=== PATIENT | male | born 2000 | race Caucasian/White ===

== ENCOUNTER 2024-01-10 16:33 | Emergency (ER) | payer OTHER, SELFPAY ==
[2024-01-10 16:43] VITALS: PULSE 73; TEMP 36.8; O2SAT 100; BMI 32.5
--- NOTE | 2024-01-10 16:58 | XR_ITS ---
The [address] [address] Patient Name: SERGE BILL MRN: [id number] date: 2000 Sex: M Assigned Patient Location: ED.MAIN Current Patient Location: ED.MAIN Accession/Order Number: [id number] Exam Date: 01/10/2024 16:53 Report Date: 01/10/2024 17:21 At the request of: RYAN RICO Procedure: XR hand LT min 3V Exam: Radiographs: XR hand LT min 3V Reason for exam: pain Comparison: None XR/XR hand LT min 3V IMPRESSION: Unremarkable left hand radiographs. Electronically authenticated by: HOMERO CONNELLY Date: 01/10/2024 17:21
--- NOTE | 2024-01-10 18:23 | ED.GENADUL1 ---
HPI HPI - General Adult General Chief complaint: Extremity Injury, Lower Stated complaint: Upper INJURY Time Seen by Provider: 01/10/24 17:27 Source: patient Mode of arrival: walk-in History of Present Illness HPI narrative: Patient is a 23-year-old male who presents to the emergency department for the evaluation of an injury to the left hand. He was at work and states he hit his left hand accidentally with a sledgehammer. He is right-hand dominant. He sustained a small abrasion to the dorsum of the hand. Tetanus is up-to-date. No active bleeding at this time. No other associated injuries. Patient denies peripheral paresthesias to the left hand. Related Data Previous Rx's ?Medication ?Instructions ?Recorded hydrocodone 5 mg-acetaminophen 325 1 tab PO Q6H PRN pain 2 days #8 01/10/24 mg tablet tabs ketorolac 10 mg tablet 10 mg PO TID PRN pain #10 tabs 01/10/24 Allergies Allergy/AdvReac Type Severity Reaction Status Date / Time No Known Drug Allergies Allergy Verified 01/10/24 16:43 Opioid HPI Opioid Management Most Recent Opioid Data: Last Pain Scale 4 01/10/24 18:08 Review of Systems ROS Constitutional Denies: fever or chills Ears, nose, mouth, and throat Denies: throat pain or nasal congestion Respiratory Denies: shortness of breath Gastrointestinal Denies: nausea or vomiting Musculoskeletal Reports: extremity pain; Denies: back pain or neck pain Integumentary/Breast Denies: rash Neurological Denies: numbness in extremities or weakness in extremities Hematologic/Lymphatic Denies: easy bruising or easy bleeding PFSH PFSH Social History Little interest or pleasure in doing things: not at all Feeling down, depressed, or hopeless: not at all Exam Narrative Exam Narrative: Gen.: Awake, alert, in no distress Head: Normocephalic, atraumatic ENT: Moist mucous membranes Respiratory: No respiratory distress Extremities: Moves extremities equally, swelling and tenderness noted over the dorsum of the left hand with a small abrasion, no deep laceration or active bleeding noted. Limited flexion extension of the fingers of the left hand. No obvious deformity, 2+ left radial pulse Psych: Normal mood and affect Neuro: No focal neuro deficit Skin: Warm, dry Constitutional Vital Signs, click to edit/add: Last Vital Signs Temp 98.2 F 01/10/24 16:43 Pulse 73 01/10/24 16:43 Resp 18 01/10/24 16:43 Pulse Ox 100 01/10/24 16:43 Course Vital Signs Vital signs: Vital Signs Temperature 98.2 F 01/10/24 16:43 Pulse Rate 73 01/10/24 16:43 Respiratory Rate 18 01/10/24 16:43 Pulse Oximetry 100 01/10/24 16:43 Temperature 98.2 F 01/10/24 16:43 Pulse Rate 73 01/10/24 16:43 Respiratory Rate 18 01/10/24 16:43 Pulse Oximetry 100 01/10/24 16:43 Medical Decision Making MDM Narrative Medical decision making narrative: X-rays of the left hand with no evidence of fracture or dislocation. Band-Aid, Gilberto wrap applied and the patient is neurovascularly intact. Rest, ice, elevate. Patient referred to occupational health for follow-up. Short course of analgesics and NSAIDs given for home. SUPERVISED APC VISIT, PHYSICIAN ATTESTATION: Based on the medical record the care appears appropriate. ? Medical Records Medical records reviewed: Yes I reviewed the patient's medical records Imaging Data XR hand: Attestation: I have reviewed the pertinent imaging results. Radiologist's impression: ITS Impressions Hand X-Ray 01/10/24 16:58 IMPRESSION: Unremarkable left hand radiographs. Electronically authenticated by: HOMERO CONNELLY Date: 01/10/2024 17:21 Discharge Plan Discharge Chief Complaint: Extremity Injury, Lower Clinical Impression: Contusion of left hand, Abrasion Patient Disposition: Home, Self-Care Time of Disposition Decision: 18:21 Condition: Good Prescriptions / Home Meds: New hydrocodone-acetaminophen 5-325 mg tablet 1 tab PO Q6H PRN (Reason: pain) 2 Days Qty: 8 0RF Rx Instructions: S60.222 ketorolac 10 mg tablet 10 mg PO TID PRN (Reason: pain) Qty: 10 0RF Print Language: Singaporean Instructions: Contusion in Adults (ED), Abrasion (ED) Referrals: Physician,Non-Staff, MD [Primary Care Provider] - 1 week
== END 2024-01-10 18:35 | disposition home or self-care (01) ==
PROVIDERS: Emergency Provider Emergency Medicine
DX: S60.222A Contusion of left hand, initial encounter (principal); S60.512A Abrasion of left hand, initial encounter; W22.8XXA Striking against or struck by other objects, initial encounter
CPT/HCPCS: 73130; 99283